=== PATIENT | female | born 1955 | race Caucasian/White ===

== ENCOUNTER → 2016-04-07 | Day surgery (SDC) | payer OTHER ==
[~2016-04-07] MED LIST: BUPIVACAINE/EPINEPHRINE 0.5% PF 30 ML VIAL ONE; ESZO3 PO; IRBE150T51 PO; KETOROLAC TROMETHAMINE 30 MG/ML (IVP) VIAL IV PUSH ONE; LACTATED RINGER'S 1000 ML INJ 1,000 ML ONE; MIDAZOLAM HCL 2 MG/2 ML VIAL ONE; ONDANSETRON HCL 4 MG/2 ML VIAL IV PUSH ONE; PROPOFOL 200 MG/20 ML AMP IV ONE; TRIAMCINOLONE ACETONIDE 40 MG/ML VIAL ONE; ceFAZolin INJ 1,000 MG VIAL ONE
--- NOTE | 2016-04-07 22:29 | MP ---
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 SURGEON Dr. Gilmar Badillo BEATER WORKER HELPER YIN Mathias BEATER WORKER HELPER YIN Begum The surgical procedure was assisted by my Advanced Registered Nurse Practitioner. My RAILROAD DINING CAR STEWARDESS presence was necessary throughout this case for the manipulation and positioning of the surgical extremity. My RAILROAD DINING CAR STEWARDESS was assisting me throughout the duration of this procedure. The skill set of an Advance Registered Nurse Practitioner was medically necessary to complete this procedure. During the surgical case, the registered nurse surgical services was working at the back table and the Advance Registered Nurse Practitioner was directly assisting me. PROCEDURE Right knee arthroscopy with partial medial meniscectomy and chondroplasty of the medial femoral condyle. ESTIMATED BLOOD LOSS Minimal. ANESTHESIA General. TOURNIQUET TIME Zero minutes. PROCEDURE The patient brought back to operative theater. General anesthesia was administered. She received intravenous Ancef. The right lower extremity was prepped and draped in usual sterile fashion. Made a standard inferolateral portal followed by inferomedial portal under spinal needle visualization. There was diffuse mild to moderate synovitis within the suprapatellar pouch. Patellofemoral joint had very minimal chondromalacia but no unstable segments of cartilage. The medial femoral condyle had diffuse grade 3 chondromalacia but only had minimal areas of unstable segments of cartilage so only minimal chondroplasty of the medial femoral condyle was necessary. There was a complex tear of the medial meniscus encompassing most of the posterior horn and some of the midbody. We used a combination of oscillating shaver and meniscal biter both from the medial and lateral portals to perform a partial medial meniscectomy. We removed about 30% of the meniscus. The anterior cruciate ligament anterior was found to be intact. The lateral compartment was free of chondromalacia with no lateral meniscal tear. There were no loose bodies in the gutters. Excess fluid from the arthroscopy was drained. Interarticular injection with 0.25% Marcaine with epinephrine was given with 40 mg of Kenalog. The arthroscopic portals were closed with 2-0 Vicryl followed by 3-0 nylon and the leg was dressed. Postop plan is weightbear as tolerated and early range of motion. MD GAURI Marquez/FERNANDA /1:43 PM /10:18 PM
== END | disposition home or self-care (01) ==
LOC: ESDC 11:37
PROVIDERS: ATTEND Orthopaedic Surgery
DX: S83.231A Complex tear of medial meniscus, current injury, right knee, initial encounter (principal); M94.261 Chondromalacia, right knee
CPT/HCPCS: 01400; 29881; J0690; J1885; J2250; J2405; J3010; J3301; J7120